=== PATIENT | female | born 1970 | race Two or more races ===

== ENCOUNTER 2020-09-19 11:58 | Outpatient (CLI) | payer OTHER | END 2020-09-19 12:03 | disposition home or self-care (01) | LOC: SONOGRAMA 11:58 | PROVIDERS: ATTEND Pathology Anatomic Pathology & Clinical Pathology | DX: D34 Benign neoplasm of thyroid gland (principal); E04.1 Nontoxic single thyroid nodule; E07.89 Other specified disorders of thyroid ==

== ENCOUNTER 2023-04-09 09:15 | Inpatient (IN) | payer OTHER ==
[~2023-04-09] VITALS: Ht 160 cm; Wt 68.0 kg
[2023-04-18] MEDS ORDERED: CETIRIZINE HCL10 MG (11:07)
[2023-04-18] MEDS ORDERED: LOSARTAN POTASS25 MG (11:07)
[2023-04-18] MEDS ORDERED: ZANAFLEX2 MG (11:07)
[2023-04-18] MEDS ORDERED: BUSPIRONE HCL5 MG (11:07)
[2023-04-18] MEDS ORDERED: LANSOPRAZOLE30 MG (11:07)
[2023-04-18] MEDS ORDERED: DULOXETINE HCL60 MG (11:07)
[2023-04-18] MEDS ORDERED: LINZESS290 MCG (11:07)
[2023-04-18] MEDS ORDERED: GABAPENTIN300 M2 (11:07)
[2023-04-18 12:24] LABS: HEMOGLOBIN 11.6 g/dL (12.0-15.00); MEAN CELL VOLUME 85.4 fL (80.00-100.00); MEAN CORPUSCULAR HEMOGLOBIN 28.4 pg (27.00-32.0); MEAN CORPUSCULAR HGB CONC 33.3 g/dl (32.0-36.0); PLATELET COUNT 204 K/uL (150-450); RED CELL DISTRIBUTION WIDTH 14.1 % (11.5-14.5)
[2023-04-18 12:51] LABS: ALBUMIN 3.4 gm/dL (3.4-5.0); CALCIUM 8.6 mg/dL (8.5-10.1); CREATININE SERUM 0.82 mg/dL (0.55-1.02); GFR 72.92; MAGNESIUM 1.8 mg/dL (1.8-2.4); PHOSPHOROUS 3.6 mg/dL (2.5-4.9); POTASSIUM 3.76 mEq/L (3.5-5.1)
[2023-04-19 06:52] LABS: HEMATOCRIT 34.8 % (36.0-45.00); HEMOGLOBIN 11.8 g/dL (12.0-15.00); MEAN CELL VOLUME 84.9 fL (80.00-100.00); MEAN CORPUSCULAR HEMOGLOBIN 28.7 pg (27.00-32.0); MEAN CORPUSCULAR HGB CONC 33.8 g/dl (32.0-36.0); PLATELET COUNT 201 K/uL (150-450); RED CELL DISTRIBUTION WIDTH 13.9 % (11.5-14.5)
[2023-04-19 07:02] LABS: CALCIUM 8.5 mg/dL (8.5-10.1); CREATININE SERUM 0.68 mg/dL (0.55-1.02); GFR 90.51; MAGNESIUM 1.9 mg/dL (1.8-2.4); PHOSPHOROUS 2.9 mg/dL (2.5-4.9); POTASSIUM 3.66 mEq/L (3.5-5.1)
[2023-04-20 09:01] LABS: CALCIUM 8.4 mg/dL (8.5-10.1); CREATININE SERUM 0.66 mg/dL (0.55-1.02); GFR 93.68; PHOSPHOROUS 2.3 mg/dL (2.5-4.9); POTASSIUM 3.42 mEq/L (3.5-5.1)
[2023-04-20 09:26] LABS: HEMATOCRIT 32.8 % (36.0-45.00); HEMOGLOBIN 11.2 g/dL (12.0-15.00); MEAN CELL VOLUME 85.3 fL (80.00-100.00); MEAN CORPUSCULAR HEMOGLOBIN 29.2 pg (27.00-32.0); MEAN CORPUSCULAR HGB CONC 34.2 g/dl (32.0-36.0); PLATELET COUNT 186 K/uL (150-450); RED BLOOD COUNT 3.84 M/uL (4.00-6.00); RED CELL DISTRIBUTION WIDTH 14.2 % (11.5-14.5)
[2023-04-21] MEDS ORDERED: ENDOCET 5-3251 EACH PO (12:21)
== END 2023-04-21 13:05 | disposition home or self-care (01) | DRG 331 ==
LOC: O/R 04-18 05:30 → SURG 04-18 09:15 → SURH 04-18 12:37
PROVIDERS: Internal Medicine Geriatric Medicine; ADMIT Surgery; ATTEND Surgery
PROC: 0DBP4ZZ Excision of Rectum, Percutaneous Endoscopic Approach (ICD-10-PCS; 2023-04-18)
PROC: 0DTN4ZZ Resection of Sigmoid Colon, Percutaneous Endoscopic Approach (ICD-10-PCS; principal; 2023-04-18 11:15)
DX: K57.20 Diverticulitis of large intestine with perforation and abscess without bleeding (principal)

== ENCOUNTER 2023-04-26 15:35 | Emergency (ER) | payer OTHER ==
[~2023-04-26] VITALS: Ht 160 cm; Wt 64.4 kg
[~2023-04-26 15:35] MED LIST: BUSPIRONE HCL5 MG; CETIRIZINE HCL10 MG; DULOXETINE HCL60 MG; ENDOCET 5-3251 EACH PO; GABAPENTIN300 M2; LANSOPRAZOLE30 MG; LINZESS290 MCG; LOSARTAN POTASS25 MG; ZANAFLEX2 MG
[2023-04-26 17:03] LABS: HEMOGLOBIN 11.5 g/dL (12.0-15.00); MEAN CELL VOLUME 85.6 fL (80.00-100.00); MEAN CORPUSCULAR HEMOGLOBIN 29.9 pg (27.00-32.0); MEAN CORPUSCULAR HGB CONC 34.9 g/dl (32.0-36.0); PLATELET COUNT 361 K/uL (150-450); RED BLOOD COUNT 3.85 M/uL (4.00-6.00); RED CELL DISTRIBUTION WIDTH 14.2 % (11.5-14.5)
[2023-04-26 17:14] LABS: CALCIUM 9.1 mg/dL (8.5-10.1); CREATININE SERUM 0.66 mg/dL (0.55-1.02); GFR 93.68; POTASSIUM 4.59 mEq/L (3.5-5.1)
== END 2023-04-26 17:48 | disposition home or self-care (01) ==
LOC: ER 15:35
PROVIDERS: General Practice
DX: M70.22 Olecranon bursitis, left elbow (principal); Z88.6 Allergy status to analgesic agent; Z88.0 Allergy status to penicillin; Z91.013 Allergy to seafood; I10 Essential (primary) hypertension

== ENCOUNTER 2023-06-21 16:33 | Emergency (ER) | payer OTHER ==
[~2023-06-21] VITALS: Ht 160 cm; Wt 66.7 kg
[2023-06-21] MEDS ORDERED: METOCLOPRAMIDE HCL 10 MG in 0.9 % SODIUM CHLORIDE 50 ML IV ONE (17:30)
[2023-06-21] MEDS ORDERED: 0.9 % SODIUM CHLORIDE 1,000 ML IV SCH (17:30)
[2023-06-21 17:56] LABS: HEMATOCRIT 37.6 % (36.0-45.00); HEMOGLOBIN 12.7 g/dL (12.0-15.00); MEAN CELL VOLUME 85.2 fL (80.00-100.00); MEAN CORPUSCULAR HEMOGLOBIN 28.7 pg (27.00-32.0); MEAN CORPUSCULAR HGB CONC 33.7 g/dl (32.0-36.0); PLATELET COUNT 244 K/uL (150-450); RED BLOOD COUNT 4.42 M/uL (4.00-6.00); RED CELL DISTRIBUTION WIDTH 14.5 % (11.5-14.5)
[2023-06-21 18:54] LABS: ALBUMIN 4.1 gm/dL (3.4-5.0); BILIRUBIN TOTAL 0.32 mg/dL (0.3-1.2); CALCIUM 9.8 mg/dL (8.5-10.1); CREATININE SERUM 0.78 mg/dL (0.55-1.02); GFR 77.26; POTASSIUM 3.89 mEq/L (3.5-5.1); TOTAL PROTEIN 8.1 gm/dL (6.4-8.2)
== END 2023-06-22 00:12 | disposition home or self-care (01) ==
LOC: ER 16:33
PROVIDERS: General Practice
DX: R10.9 Unspecified abdominal pain (principal); K57.32 Diverticulitis of large intestine without perforation or abscess without bleeding; Z98.890 Other specified postprocedural states; I10 Essential (primary) hypertension; Z88.0 Allergy status to penicillin; Z88.6 Allergy status to analgesic agent; Z91.013 Allergy to seafood
CPT/HCPCS: 36415; 74177; 96365; 96366; 99284; J2765; J7030; Q9965